=== PATIENT | male | born 1985 | race Caucasian/White ===

== ENCOUNTER 2017-02-09 09:21 | Emergency (ER) | payer OTHER ==
[~2017-02-09] VITALS: Ht 175.3 cm; Wt 85.0 kg
[2017-02-09 09:27] VITALS: BP 112/76; PULSE 35; RESP 13; O2SAT 99
--- NOTE | 2017-02-09 09:37 | ED.REPORT ---
HPI-Abd Pain M Under 40 Date of Service Feb 09, 2017 ED Provider: Arnold Sandy MD Pt is a generally healthy 31 y/o male presenting to the ED from the [place] due to a R inguinal hernia onset 2 weeks ago. The patient was performing heavy lifting during the 27 of January weekend when the hernia began. Since then he has been experiencing R inguinal pain. Pt denies bloody stools, nausea, vomiting, fever, testicular pain, dysuria, penile discharge. The patient was diagnosed with the hernia 3 days ago at a walk in clinic [facility] The patient went to a [place] clinic this morning and was told that they wouldn't be able to see him soon enough so he was told to come to the ED. The patient is getting in February so he is wanting to have the hernia repaired before that if possible. Nursing Notes Stated Complaint: INGUINAL HERNIA Chief Complaint: Male Abdominal Pain Nursing Notes Reviewed: Yes Allergies: Coded Allergies: No Known Allergies (Unverified , 02/09/17) Scheduled PRN Hydrocodone-Acetaminophen 5-325 mg (Hydrocodone-Acetaminophen 5-325 mg) 1 Each Tablet 1 TABLET PO Q4H PRN PRN For Pain General Time Seen by MD: 09:35 Chief Complaint Inguinal pain right Hx Obtained From: Patient Arrived By: Walk-in Sudden in Onset?: Yes Onset Occurred: More than a week ago... (2 weeks) Symptom Duration: Since onset Quality: Painful Radiation: : Inguinal right Severity: Current: Moderate Severity: Maximum: Moderate Similar Sx Previous: No Past Medical History Past Medical History Notes: PCP: [place] Past Medical History Current R inguinal hernia - 02/09/17 Chronic sinus bradycardia with normal HR in 30s - he runs 7-8 miles each day Past Surgical History None reported Smoking History Unknown if Ever Smoker Social History Alcohol Use: "Social" Drug Use: Denies drug use Ambulatory Status Independent Review of Systems Constitutional: Denies: Chills, Fever Respiratory: Denies: Non-productive cough, Shortness of breath Cardiovascular: Denies: Chest pain, Dyspnea on exertion GI: Reports: Abdominal pain (R inguinal), Denies: Bloody/tarry stool, Diarrhea, Melena, Nausea, Vomiting Male: Denies Dysuria, Denies Hematuria, Denies Penile discharge Complete sys rev & neg: except as marked. Physical Exam Initial Vital Signs Vital Signs (First) Date Time Temp Pulse Resp B/P Pulse Ox O2 Delivery O2 Flow Rate FiO2 02/09/17 09:27 36.5 35 13 112/76 99 Room Air Initial VS: Reviewed, Vital signs normal (normal for him) Head / Eyes: Atraumatic, Normocephalic, PERRL ENT: Mucous membranes moist, Conjunctiva normal, No scleral icterus Neck: Supple, Full range of motion Extremities: Vascular intact, Neuro intact, No swelling Skin: Warm, Dry, No cyanosis Neurologic: Alert, Oriented, Nonfocal Psychiatric: Mood/affect normal, Behavior normal, Normal thought content General/Constitutional: Awake, Alert, No acute distress, Cooperative, Not toxic appearing Respiratory / Chest: Breath sounds NL, Breath sounds = bilat, No respiratory distress, No rales, No rhonchi, No wheezing Cardiovascular: Regular rhythm, Heart sounds NL, No murmurs Heart Rate / Rhythm: Positive: Bradycardia Abdomen: Atraumatic, Soft, Non-tender, No guarding, No rebound, No distention Back: Full range of motion, Painless range of motion Male Genitourinary: Atraumatic, No penile discharge, Testes NL, No lesions or rash Tender R inguinal canal Appears to be a 0.5 cm defect about the superior medial margin of inguinal canal. No hernia palpated. Testicles nontender Interpretation & Diagnostics Interpretation & Diagnostics: US inguinal right: IMPRESSION: Reducible, fat-containing, right direct, inguinal hernia. Dictated by: Vanessa Mccarthy MD, PhD on 02/09/2017 at 11:05 Approved by: Vanessa Mccarthy MD, PhD on 02/09/2017 at 11:06 Lab Results Interpretation Result Diagram: 02/09/17 1010 02/09/17 1010 Test 02/09/17 10:10 White Blood Count 5.9th/mm3 (3.8-10.1) Red Blood Count 5.14mil/mm3 (4.40-5.80) Hemoglobin 16.1g/dL (13.8-17.2) Hematocrit 45.5% (41.0-50.0) Mean Corpuscular Volume 88.5fL (81-100) Mean Corpuscular Hemoglobin 31.3pg (27.0-35.0) Mean Corpuscular Hemoglobin Concent 35.4% (32.0-37.0) Red Cell Distribution Width 13.5% (12.3-15.4) Platelet Count 269bil/L (150-400) Neutrophils (%) (Auto) 53.3% (40-74) Lymphocytes (%) (Auto) 31.6% (14-46) Monocytes (%) (Auto) 10.4% (4-12) Eosinophils (%) (Auto) 3.9% (0-5) Basophils (%) (Auto) 0.8% (0-3) Sodium Level 139mEq/L (134-144) Potassium Level 5.1mEq/L (3.5-5.2) Chloride Level 101mEq/L (97-108) Carbon Dioxide Level 26mmol/L (18-29) Blood Urea Nitrogen 14mg/dL (6-20) Creatinine 0.78mg/dL (0.76-1.27) Estimat Glomerular Filtration Rate 124mL/min (>59) Glucose Level 101mg/dL (60-99) Calcium Level 9.9mg/dL (8.5-10.1) Total Bilirubin 0.4mg/dL (0.0-1.2) Aspartate Amino Transf (AST/SGOT) 24U/L (0-50) Alanine Aminotransferase (ALT/SGPT) 21U/L (0-44) Alkaline Phosphatase 46U/L (25-150) Total Protein 7.6g/dL (6.4-8.4) Albumin 4.6g/dL (3.4-5.0) Hold Huizar Top Tube Received (Received) ECG Interpretation ECG Interpretation: Sinus bradycardia rate 34 Early repol pattern V2-V5 [place] interval 184 QTc 350 Time: 10:17 Interpreted by: ED physician Normal ECG Interpretation: No acute ischemic changes Re-Eval/Medical Decision Med Decision/Clinical Course 31-year-old male presenting with right inguinal pain times several weeks. On exam he has a right inguinal hernia which is reducible. Ultrasound confirms right inguinal hernia direct which is reducible. There is no evidence of strangulation or incarceration. His white blood cell count is normal. His pain improved. He had no fevers, nausea or vomiting. Patient will be discharged home with plans to follow up with general surgery for elective inguinal hernia repair. He was advised to return immediately if any sign symptoms strangulation or incarceration including increasing pain, nonreducible, fevers, nausea vomiting, blood in stools, erythema. Re-Evaluation/Progress : Time of Eval: 10:55 Re-Evaluation/Progress Note: Pt rechecked. Discussed US results. Informed pt of plan for discharge. Pt understands and agrees with plan for discharge. F/U instructions and RTER warnings given. All questions addressed. Counseled Regarding: Diagnosis, Lab results, Need for follow-up, When/why to return to ED Patient Discharge & Departure Primary Impression: Right inguinal hernia Additional Impression: Chronic sinus bradycardia Disposition: Home Discharge Condition All VS Reviewed: Yes Condition: Improved Patient Instructions: Inguinal Hernia (ED) Additional Instructions: Thank you for seeking care at the emergency room. You have a right inguinal hernia which was diagnosed by ultrasound. Labs today were normal. Do not lift anything heavier than 10 pounds. No intense abdominal exercises. You will be discharged with a prescription for narcotic pain medication. Take this for severe or breakthrough pain. You should follow-up with your primary doctor in the next week to get a referral for a surgeon. We have provided you with a surgeon's referral number if you are able to see a provider out of the [place] system. You should return to the Emergency Department immediately if you develop redness over the area, increased pain, if you are unable to reduce it, fevers, vomiting, bloody stools, or any other concerning signs or symptoms. Thank you for letting us partake in your care today. You have been prescribed a narcotic for pain relief. These drugs are usually combined with acetaminophen (Tylenol#3, Percocet, Darvocet, Anexsia, Vicodin) or aspirin (Empirin#3, Percodan, Synalogs-DC) for increased effect. Narcotics act on the central nervous system to reduce pain; they also impair mental alertness and physical abilities. We advise you not to drink alcohol, drive a car, or operate dangerous equipment when you are taking these drugs. You can lessen stomach irritation from your medicine by taking it with meals or a full glass of water. Common side effects of narcotics are: Nausea and vomiting, heartburn, constipation, dizziness, sleepiness, and mood changes. If you have bothersome side effects or symptoms of an allergic reaction (itching, hives, rash), stop taking your medicine and call your doctor or the emergency room right away. Please keep your narcotic medicine well out of the reach of children. Referrals: Desmond Masters MD Attestation Portions of this note were transcribed by Ethan Jiménez. I, Dr. Sandy personally performed the history, physical exam and medical decision-making; I reviewed and confirmed the accuracy of the information in the transcribed note. Signed by Josh Nuñez, 02/09/17 - 1000 Arnold Sandy MD Feb 09, 2017 09:37 ETHAN JIMÉNEZ Feb 09, 2017 09:47
[2017-02-09] MEDS ORDERED: 0.9% Sodium Chloride 1,000 ML IV ONE (09:48)
[2017-02-09] MEDS ORDERED: Ondansetron 2 mg/mL 2 mL Inj IVPUSH PRN (09:50)
[2017-02-09 10:20] LABS: BASOPHILS % (AUTO) 0.8 % (0-3); EOSINOPHILS % (AUTO) 3.9 % (0-5); MONOCYTES % (AUTO) 10.4 % (4-12); Mean Corpuscular Hemoglobin 31.3 pg (27.0-35.0); Mean Corpuscular Volume 88.5 fL (81-100); NEUTROPHILS % (AUTO) 53.3 % (40-74); Platelet Count 269 bil/L (150-400)
--- NOTE | 2017-02-09 11:08 | DRSVH ---
PROCEDURE: US HERNIA INGUINAL INDICATIONS: r/o R inguinal hernia TECHNIQUE: Real-time focused scanning was performed of the inguinal region, with image documentation. COMPARISON: None. FINDINGS: A right direct inguinal, fat-containing, reducible hernia is noted. Right inguinal canal op ens to 1.2 cm. IMPRESSION: Reducible, fat-containing, right direct, inguinal hernia. Dictated by: Vanessa Mccarthy MD, PhD on 02/09/2017 at 11:05 Approved by: Vanessa Mccarthy MD, PhD on 02/09/2017 at 11:06
[2017-02-09] MEDS ORDERED: HYDR-4003 PO (11:12)
[2017-02-09 11:33] VITALS: BP 123/47; PULSE 34; RESP 14; O2SAT 100
== END 2017-02-09 11:30 | disposition home or self-care (01) ==
LOC: SED 09:21
DX: K40.90 Unilateral inguinal hernia, without obstruction or gangrene, not specified as recurrent (principal); R00.1 Bradycardia, unspecified
CPT/HCPCS: 36415; 76857; 80053; 85025; 93005; 96361; 96374; 99285; J1885; J7030